=== PATIENT | male | born 1990 | race Caucasian/White ===

== ENCOUNTER 2024-08-16 16:18 | Emergency (ER) | payer OTHER ==
[~2024-08-16] VITALS: Ht 167.6 cm; Wt 77.0 kg
[2024-08-16 16:32] VITALS: O2SAT 98
[2024-08-16 19:26] VITALS: BP 129/72; PULSE 67; RESP 14; TEMP 36.9; O2SAT 100
== END 2024-08-16 19:28 | disposition home or self-care (01) ==
LOC: ER 16:18
DX: M79.621 Pain in right upper arm (principal); Z98.890 Other specified postprocedural states
CPT/HCPCS: 99281; 99282